=== PATIENT | female | born 1995 | race Caucasian/White ===

== ENCOUNTER 2024-08-23 19:51 | Emergency (ER) | payer OTHER ==
[~2024-08-23] VITALS: Ht 157.5 cm; Wt 65.0 kg
[2024-08-23 20:04] VITALS: BP 108/63; TEMP 37.2; O2SAT 99
[2024-08-23 20:26] VITALS: PULSE 85; RESP 18; O2SAT 99
== END 2024-08-23 21:35 | disposition left against medical advice (07) ==
LOC: ER 19:51
DX: R10.9 Unspecified abdominal pain (principal); R51.9 Headache, unspecified; E78.00 Pure hypercholesterolemia, unspecified; Z53.21 Procedure and treatment not carried out due to patient leaving prior to being seen by health care provider

== ENCOUNTER 2025-01-17 12:22 | Emergency (ER) | payer OTHER, MEDICAID ==
[~2025-01-17] VITALS: Ht 157.5 cm; Wt 72.0 kg
[2025-01-17 12:31] VITALS: TEMP 37.1; O2SAT 99
[2025-01-17 13:15] LABS: BASOPHILS % 0.7 % (0.0-2.0); EOSINOPHILS % 0.9 % (0.0-5.0); HEMATOCRIT. 37.3 % (36.0-48.0); HEMOGLOBIN. 12.9 g/dL (12.0-16.0); LYMPHOCYTES % 33.0 % (20.0-50.0); MEAN PLATELET VOLUME 9.2 fl (7.4-10.4); MONOCYTES % 8.1 % (2.0-8.0); NEUTROPHILS % 57.3 % (40.0-76.0); PLATELET 171 x1000/uL (130-400); RED BLOOD CELL COUNT 3.98 mill/uL (4.2-5.4); RED CELL DISTRIBUTION WIDTH 12.4 % (11.6-14.6)
[2025-01-17 13:29] LABS: CREATININE 0.8 mg/dL (0.6-1.0)
[2025-01-17 13:30] LABS: UREA NITROGEN BLOOD 10 mg/dL (9-23)
[2025-01-17 13:31] LABS: ASPARTATE AMINOTRANSFERASE 19 IU/L (<34)
[2025-01-17 13:32] LABS: BILIRUBIN TOTAL 0.5 mg/dL (0.1-1.0); PROTEIN TOTAL 6.7 g/dL (6.0-8.3)
[2025-01-17 13:33] LABS: CLARITY URINE CLEAR (CLEAR); COLOR URINE YELLOW (YELLOW); GLUCOSE URINE NEGATIVE (NEGATIVE); KETONES URINE NEGATIVE (NEGATIVE); LEUKOCYTE ESTERASE URINE NEGATIVE (NEGATIVE); NITRITE URINE NEGATIVE (NEGATIVE); OCCULT BLOOD URINE NEGATIVE (NEGATIVE); PH URINE 7.5 (4.5-8.0); PROTEIN URINE NEGATIVE (NEGATIVE); SPECIFIC GRAVITY URINE 1.006 (1.005-1.030); UROBILINOGEN URINE 0.2 E.U./dL (0.2-1.0)
[2025-01-17] MEDS ORDERED: KETO15CR2 TP (14:14)
[2025-01-17 14:55] VITALS: BP 95/61; PULSE 60; RESP 18; O2SAT 100
== END 2025-01-17 14:56 | disposition home or self-care (01) ==
LOC: ER 12:22
DX: B35.9 Dermatophytosis, unspecified (principal); E78.00 Pure hypercholesterolemia, unspecified
CPT/HCPCS: 36415; 80053; 81003; 81025; 85025; 99283

== ENCOUNTER 2025-01-26 18:56 | Emergency (ER) | payer OTHER, MEDICAID ==
[~2025-01-26] VITALS: Ht 152.4 cm; Wt 69.0 kg
[~2025-01-26 18:56] MED LIST: KETO15CR2 TP
[2025-01-26 19:07] VITALS: O2SAT 98
[2025-01-26] MEDS ORDERED: HYDR28.485 TOP (22:06)
[2025-01-26] MEDS ORDERED: CETI10TA11 MT (22:06)
[2025-01-26 22:18] VITALS: BP 114/68; PULSE 61; RESP 18; TEMP 36.9; O2SAT 99
== END 2025-01-26 22:19 | disposition home or self-care (01) ==
LOC: ER 18:56
DX: L42 Pityriasis rosea (principal)
CPT/HCPCS: 99282